=== PATIENT | female | born 1965 | race Caucasian/White ===

== ENCOUNTER 2017-05-31 13:47 | Emergency (ER) | payer BC ==
[2017-05-31] MEDS ORDERED: NO MEDICATIONS (14:00)
== END 2017-05-31 14:57 | disposition home or self-care (01) ==
LOC: SED 13:47
DX: S61.041A Puncture wound with foreign body of right thumb without damage to nail, initial encounter (principal); Z88.1 Allergy status to other antibiotic agents; Z88.0 Allergy status to penicillin; Z23 Encounter for immunization; W45.8XXA Other foreign body or object entering through skin, initial encounter; Y92.009 Unspecified place in unspecified non-institutional (private) residence as the place of occurrence of the external cause
CPT/HCPCS: 90471; 90715; 99283